=== PATIENT | female | born 1950 | race Caucasian/White ===

== ENCOUNTER → 2018-02-20 | Outpatient (CLI) | payer OTHER ==
[~2018-02-20] MED LIST: ALPR1TAB3 PO; ATOR-24 PO; BUME1TAB PO; CARV25TA PO; CHOL2000 PO; CLON0.1T12 PO; GLIM4TAB2 PO; INSU1INJ33 SQ; LINA1TAB PO; LISI40TA PO; MAGN400T6 PO; POLY335019 PO; POTA-639 PO; RXC5 PO; SYN75 PO; VENL-273 PO; XRL10 PO; thyroxine PO
[2018-02-20 12:23] LABS: BASO % 0.5 %; BASO ABS # 0.04 K/uL (0-0.2); EOS % 3.5 %; HEMATOCRIT 39.9 % (37-47); HEMOGLOBIN 12.4 g/dL (12.0-16.0); IG# 0.04 K/uL (0.00-0.02); LYMPH % 24.9 %; LYMPH ABS # 2.12 K/uL (1.2-3.4); MEAN CELL VOLUME 88.9 fL (80-100); MEAN CORPUSCULAR HEMOGLOBIN 27.6 pg (25-34); MEAN CORPUSCULAR HGB CONC 31.1 g/dl (32-36); MEAN PLATELET VOLUME 10.2 fL (7.4-10.4); MONO % 5.6 %; MONO ABS # 0.48 K/uL (0.11-0.59); NEUT ABS # 5.54 K/uL (1.4-6.5); PLATELET COUNT 299 K/uL (130-400); RED CELL DISTRIBUTION WIDTH CV 15.3 % (11.5-14.5); RED CELL DISTRIBUTION WIDTH SD 49.2 fL (36.4-46.3); WHITE BLOOD COUNT 8.52 K/uL (4.8-10.8)
[2018-02-20 12:37] LABS: BLOOD UREA NITROGEN 25 mg/dl (7-18); CALCIUM 8.6 mg/dl (8.5-10.1); CARBON DIOXIDE 25 mmol/L (21-32); CREATININE 0.98 mg/dl (0.60-1.20); GLUCOSE 196 mg/dl (70-99); POTASSIUM 4.2 mmol/L (3.5-5.1); SODIUM 134 mmol/L (136-145)
[2018-02-20 12:40] LABS: PTT PATIENT 25.2 SECONDS (21.0-31.0)
== END | disposition home or self-care (01) ==
LOC: C.LAB 10:17
PROVIDERS: ATTEND Orthopaedic Surgery
DX: Z01.812 Encounter for preprocedural laboratory examination (principal); M17.11 Unilateral primary osteoarthritis, right knee

== ENCOUNTER 2018-10-24 09:15 | Inpatient (IN) ==
--- NOTE | 2018-10-22 09:12 | Anesthesiology Consultation ---
Date of Service October 22, 2018 Assessment & Plan (1) Encounter for pre-operative examination: Chart Review Chart Review: Acceptable Risk for Surgery and Patient NOT seen in Pre Admission Testing Consults Requested none Pt was seen by information security specialist on 10/16/18. Per information security specialist "the patient is stable and at optimal cardiac status presently to proceed with the planned surgery accepting all CV risks." History Surgery Operation Date: 10/24/18 13:40 Proposed Procedures p Right Repair Quadriceps Tendon Tear - Vincent Parisi DO Height/Weight Height: 1.45 m Weight: 108.409 kg Allergies Allergy/AdvReac Type Severity Reaction Status Date / Time Penicillins Allergy Intermediate HIVES Verified 10/21/18 15:15 [facility]aglutide [facility] Allergy Unknown CAN'T Verified 10/21/18 15:15 REMEMBER NSAIDS (Non-Steroidal AdvReac Mild DUE TO Verified 10/21/18 15:15 Anti-Inflamma KIDNEY DISEASE Medications Home Medications Medication Instructions Recorded Confirmed Last Taken Tradjenta 5 mg PO QAM 90 Days #90 tab 12/05/17 10/21/18 04/11/18 10:00 Tresiba FlexTouch U-100 40 unit SUBCUT QPM #0 12/05/17 10/21/18 04/12/18 06:30 alprazolam 1 mg PO BID #0 tab 12/05/17 10/21/18 04/12/18 05:00 atorvastatin 40 mg PO HS 90 Days #90 tab 12/05/17 10/21/18 04/11/18 23:00 bumetanide 0.5 mg PO Q2D #0 tab 12/05/17 10/21/18 Unknown carvedilol 25 mg PO BID 30 Days #60 tab 12/05/17 10/21/18 04/12/18 05:00 cholecalciferol (vitamin D3) 2,000 unit PO DAILY 30 Days #0 cap 12/05/17 10/21/18 04/11/18 17:00 [Vitamin D3] clonidine HCl 0.1 mg PO BID 90 Days #180 tab 12/05/17 10/21/18 04/12/18 05:00 lisinopril 40 mg PO QAM #0 tab 12/05/17 10/21/18 04/12/18 05:00 magnesium oxide 400 mg PO DAILY #0 tab 12/05/17 10/21/18 04/11/18 17:00 potassium chloride 20 meq PO Q2D #0 tab 12/05/17 10/21/18 Unknown polyethylene glycol 3350 [Miralax] 1 dose PO DAILY PRN #527 g 01/01/18 10/21/18 Unknown apixaban [Eliquis] 5 mg PO BID 10/21/18 10/21/18 Unknown aspirin [Aspir-Low] 81 mg PO QAM 10/21/18 10/21/18 Unknown diltiazem HCl [Cardizem CD] 120 mg PO QAM 10/21/18 10/21/18 Unknown escitalopram oxalate [Lexapro] 10 mg PO QAM 10/21/18 10/21/18 Unknown levothyroxine 88 mcg PO QAM 10/21/18 10/21/18 Unknown semaglutide [Ozempic] 1 dose SUBCUT WK 10/21/18 10/21/18 Unknown Past Medical History Medical History Anxiety Atrial fibrillation Coronary artery disease 2013 HEART CATH, 2 REMY to LAD Degenerative disc disease Depression Diabetes mellitus, type 2 IDDM History of stent insertion of renal artery LEFT 08/2013 Hx of deep venous thrombosis 03/2018 S/P RT KNEE SURGERY Hx of myocardial infarction 2012 Hyperlipemia Hypertension Hypothyroidism Osteoarthritis Past Family History Family History Mother Breast cancer Brother Coronary heart disease Brother Coronary heart disease Sister Breast cancer Brother Family history of diabetes mellitus Father Family history of esophageal cancer Past Surgical History Surgical History Family history of reaction to anesthesia SISTER-NAUSEA History of carpal tunnel release RT History of heart artery stent 2 STENTS PLACED 2012 [facility] History of incision and drainage ABDOMEN AREA 10 YEARS LATER S/P LIANET History of tonsillectomy History of tooth extraction History of total abdominal hysterectomy and bilateral salpingo-oophorectomy History of total knee replacement LT/RT History of total left knee replacement 12/2017 Hx of cardiac cath 2013 HEART CATH, 2 REMY to LAD Hx of cystoscopy LEFT KIDNEY STENT (HAD HIGH BLOOD PRESSURE/? OBSTRUCTION) Hx of parathyroidectomy Social History Smoking Status: Never smoker Do You Dip or Chew Tobacco: No Hx Alcohol Use: No Hx Substance Use: No substance use type: does not use Exercise / Class Metabolic Activity III < 4 Walking/Shop/Light housework Testing Electrocardiogram Date: 10/16/18 Findings: + NSR @ (77) Echocardiogram Date: 04/15/18 EF: 65-70% LV Function: normal RWMA: + none Valvular Disease: + MR (Mild) Per cardio, echo from 10/04/18: EF 55%. RV wnl. Stress Test Date: 11/19/17 Type: nuclear Resting EF: 44% Type: nuclear Findings: no ischemia Resting EF: 44% Resting RWMA: + pertinent finding (basal septal HK) Cardiac Catheterization Date: 06/17/13 Intervention: + REMY placed Cardiac Catheterization Date: 06/17/13 LAD: prox 99% stenosis with sluggish flow down to distal LAD; RCA prox 80%- Nondominant OM1 prox and mid 50%; accesory LCx; LAD collateralized from R circulation; 2 overlapping REMY to LAD
--- NOTE | 2018-10-23 07:26 | History & Physical Report ---
Date of Service October 23, 2018 Assessment & Plan (1) Quadriceps tendon rupture: We will proceed with an open quadriceps tendon repair. Postoperatively I will keep her overnight at the hospital for medical management and observation. She will be started back on her aspirin and Eliquis postoperatively. Present on Admission?: Yes History of Present Illness Primary Care Provider: Pete Salazar is a pleasant 67-year-old female who underwent a right total knee arthroplasty on April 122017. She is now 6 months out. She was at [facility] with concerns of having a heart attack about 2 weeks ago. She was in a low commode and went to get herself out of the commode and felt a snap and a pop in her right knee. Her knee completely gave out on her. Initial x-rays at the hospital did show some lateral tracking of the patella. At this point she is able to walk on her knee, but she does not have good strength with it. X-rays in our office did show some lateral tracking of the patella. She has a very large soft tissue envelope so was difficult to palpate any defect in the quadriceps tendon. However, she examined very much like a dehiscence of the quadriceps. After discussions with her and her , she elected to proceed with an open quadriceps tendon repair. Allergies Allergy/AdvReac Type Severity Reaction Status Date / Time Penicillins Allergy Intermediate HIVES Verified 10/21/18 15:15 dulaglutide [From [facility]] Allergy Unknown CAN'T Verified 10/21/18 15:15 REMEMBER NSAIDS (Non-Steroidal AdvReac Mild DUE TO Verified 10/21/18 15:15 Anti-Inflamma KIDNEY DISEASE Home Medications Home Medications Medication Instructions Recorded Confirmed Type Tradjenta 5 mg PO QAM 90 Days #90 tab 12/05/17 10/21/18 History Tresiba FlexTouch U-100 40 unit SUBCUT QPM #0 12/05/17 10/21/18 History alprazolam 1 mg PO BID #0 tab 12/05/17 10/21/18 History atorvastatin 40 mg PO HS 90 Days #90 tab 12/05/17 10/21/18 History bumetanide 0.5 mg PO Q2D #0 tab 12/05/17 10/21/18 History carvedilol 25 mg PO BID 30 Days #60 tab 12/05/17 10/21/18 History cholecalciferol (vitamin D3) 2,000 unit PO DAILY 30 Days #0 cap 12/05/17 10/21/18 History [Vitamin D3] clonidine HCl 0.1 mg PO BID 90 Days #180 tab 12/05/17 10/21/18 History lisinopril 40 mg PO QAM #0 tab 12/05/17 10/21/18 History magnesium oxide 400 mg PO DAILY #0 tab 12/05/17 10/21/18 History potassium chloride 20 meq PO Q2D #0 tab 12/05/17 10/21/18 History polyethylene glycol 3350 [Miralax] 1 dose PO DAILY PRN #527 g 01/01/18 10/21/18 History apixaban [Eliquis] 5 mg PO BID 10/21/18 10/21/18 History aspirin [Aspir-Low] 81 mg PO QAM 10/21/18 10/21/18 History diltiazem HCl [Cardizem CD] 120 mg PO QAM 10/21/18 10/21/18 History escitalopram oxalate [Lexapro] 10 mg PO QAM 10/21/18 10/21/18 History levothyroxine 88 mcg PO QAM 10/21/18 10/21/18 History semaglutide [Ozempic] 1 dose SUBCUT WK 10/21/18 10/21/18 History Past Med/Surg History Medical History Anxiety Atrial fibrillation Coronary artery disease 2013 HEART CATH, 2 REMY to LAD Degenerative disc disease Depression Diabetes mellitus, type 2 IDDM History of stent insertion of renal artery LEFT 08/2013 Hx of deep venous thrombosis 03/2018 S/P RT KNEE SURGERY Hx of myocardial infarction 2012 Hyperlipemia Hypertension Hypothyroidism Osteoarthritis Surgical History Family history of reaction to anesthesia SISTER-NAUSEA History of carpal tunnel release RT History of heart artery stent 2 STENTS PLACED 2012 [facility] History of incision and drainage ABDOMEN AREA 10 YEARS LATER S/P LIANET History of tonsillectomy History of tooth extraction History of total abdominal hysterectomy and bilateral salpingo-oophorectomy History of total knee replacement LT/RT History of total left knee replacement 12/2017 Hx of cardiac cath 2013 HEART CATH, 2 REMY to LAD Hx of cystoscopy LEFT KIDNEY STENT (HAD HIGH BLOOD PRESSURE/? 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 I am unable to feel any defect in the quad tendon because of her large soft tissue envelope. She has about a 5 degree extensor lag. She has weakness with extension of the right leg compared to the left. She is able to do a strong straight leg raise on the left but only has 3 out of 5 muscle strength on the right. Results & Data Diagnostic Findings X-rays of the knee show the implants to be in good alignment without any signs of loosening. There is lateral tracking of the patella especially when compared to 6-week postoperative films.
[~2018-10-24 09:15] MED LIST changes: -ALPR1TAB3 PO; -ATOR-24 PO; -BUME1TAB PO; -CARV25TA PO; -CHOL2000 PO; -CLON0.1T12 PO; -GLIM4TAB2 PO; -INSU1INJ33 SQ; -LINA1TAB PO; -LISI40TA PO; +LR 15ML/HR IV SCH; +LR 60ML/HR IV SCH; -MAGN400T6 PO; -POLY335019 PO; -POTA-639 PO; +ROPIVACAINE 0.5% 5 MG/ML 30 ML VIAL ONE; -RXC5 PO; -SYN75 PO; -VENL-273 PO; -XRL10 PO; -thyroxine PO
[2018-10-24 10:00] LABS: Hematocrit (blood only) 44.2 % (37-47); Hemoglobin 14.6 g/dL (12.0-16.0); Mean Corpuscular Volume 86.8 fL (80-100); Mean Platelet Volume 10.3 fL (7.4-10.4); Platelet Count 310 K/uL (130-400); RDW Coefficient of Variation 15.2 % (11.5-14.5); RDW Standard Deviation 48.6 fL (36.4-46.3); Red Blood Count 5.09 M/uL (4.2-5.4); White Blood Count 9.81 K/uL (4.8-10.8)
[2018-10-24 10:16] LABS: BUN Creatinine Ratio 16.8 (10-20); Calcium 9.3 mg/dl (8.5-10.1); Creatinine Clr Calc Pharmacy 51.9 ml/min; Est GFR (African American) 59.3; Est GFR (Non-African American) 51.1; Potassium 4.3 mmol/L (3.5-5.1)
[2018-10-24 10:37] LABS: INR 1.1 (0.9-1.1); Partial Thromboplastin Time 26.5 Seconds (21.0-31.0); Prothrombin Time 11.3 Seconds (9.0-12.0)
[2018-10-24] MEDS ORDERED: ePHEDrine sulfate 50 MG/ML AMP IV PRN (11:07)
[2018-10-24] MEDS ORDERED: ATROPINE SULFATE 0.1 MG/ML 10ML SYR IV PRN (11:07)
[2018-10-24] MEDS ORDERED: DEXAMETHASONE SOD INJ 4 MG/ML VIAL ONE (11:26)
[2018-10-24] MEDS ORDERED: ONDANSETRON INJ 2 MG/ML 2 ML VIAL ONE (11:26)
[2018-10-24] MEDS ORDERED: LIDOCAINE HCL 2% 2 ML VIAL/AMP(20MG/ML) INFIL ONE (11:26)
[2018-10-24] MEDS ORDERED: PROPOFOL IV EMULSION 10 MG/ML 20 ML VIAL IV ONE (11:26)
[2018-10-24] MEDS ORDERED: MIDAZOLAM HCL 1 MG/ML 2ML VIAL ONE (11:27)
[2018-10-24] MEDS ORDERED: fentaNYL citrate 100 MCG/2 ML VIAL ONE (11:27)
--- NOTE | 2018-10-24 12:02 | History & Physical Bridge Note ---
Date of Service October 24, 2018 History & Physical Bridge Note I have examined the patient, reviewed the History & Physical and in the interval since the performance of the History & Physical I have noted the following changes of clinical significance: no changes noted
[2018-10-24] MEDS ORDERED: BUPIVACAINE 0.25% 30 ML VIAL ONE (12:39)
[2018-10-24] MEDS ORDERED: EPINEPHrine INJ 1 MG/ML AMP ONE (12:39)
[2018-10-24] MEDS ORDERED: POVIDONE-IODINE OP SOLN 30 ML BTL ONE (12:39)
[2018-10-24] MEDS: CEFAZOLIN 2000MG 2,000 MG/15 ML SYR IV SCH ×2 (12:40→20:49)
--- NOTE | 2018-10-24 13:54 | Operative Report ---
Post Operative Report Pre & Post Diagnosis Operation Date: 10/24/18 12:20 Pre-Op Diagnosis: Right Quadriceps Tendon dehiscence Post-Op Diagnosis: Right Quadriceps Tendon dehiscence Procedure Operation Date: 10/24/18 12:20 Actual Procedures p Right Repair Quadriceps Tendon Tear(Right) - Vincent Parisi DO Surgeon Vincent Parisi DO Agents' Records Clerk None Estimated Blood Loss 30 Findings Consistent with Post-Op Diagnosis Specimens None Indications Marie is a pleasant 68-year-old female who underwent a right total knee arthroplasty about 6 months ago. Unfortunately, about 2 weeks ago she thought she was having some cardiac issues. She went to [facility]. While at the hospital she was getting up off a low commode and felt a pop in her right knee. X-rays at the hospital did show a laterally translated patella. She came to my office. Repeat x-rays did show lateral translation of the patella compared to the original postop x-rays. She did have an extensor lag and was complaining about her knee giving out on her. After discussions in the office, she elected to proceed with an open quadriceps tendon repair. Description of Procedure On October 24, 2018 she arrived at [facility] for the above procedure. She was seen in the preoperative holding area and the operative extremity was identified and signed. She was given a preoperative antibiotic and taken back to the operating room. She was laid on the table in supine position. She was put under general anesthesia. The right knee was then prepped and draped in sterile fashion. A timeout was done. The patient and the operative extremity was properly identified. A midline incision was made directly over the old scar. Dissection was taken down to the extensor mechanism. The superior medial aspect of the extensor mechanism had a slight delaminating tear. It was not torn all the way down to the joint. The tear involved the VMO tendon and was more of a delaminating type tear. This was all repaired with #2 FiberWire suture. I was able to tighten up the medial side. The knee was brought through full range of motion and everything was felt to be stable. The wound was then irrigated. I did a 3- minute Betadine lavage. The skin was then closed with 2-0 Vicryl and 30V lock suture. [place] were used. She was then placed in a soft compressive dressing. She was then extubated and transferred to a [facility]. She was taken to the post anesthesia care unit in stable condition. She tolerated the procedure well. I attest to the content of the Intraoperative Record and any orders documented therein. Any exceptions are noted below.
[2018-10-24] MEDS: HYDROmorphone INJ 1 MG/ML SYRINGE IV PRN ×3 (14:09→14:22)
--- NOTE | 2018-10-24 14:51 | Anesthesiology Progress Note ---
Date of Service October 24, 2018 Anesthesia Post Procedure Vital Signs Vital Signs: Temp Pulse Pulse Resp BP Pulse Ox 10/24/18 14:45 36.3 C L 55 L 15 149/74 H 96 10/24/18 14:30 55 L 12 142/74 H 95 10/24/18 14:20 58 L 13 150/80 H 100 10/24/18 14:10 58 L 20 101/74 100 10/24/18 14:01 36 C L 70 17 169/83 H 99 10/24/18 09:45 36.5 C 69 20 139/66 95 Pain Intensity Right Knee: Pain Intensity: 3 Notes Mental Status: alert / awake / arousable Patient Amnestic to Procedure: Yes Nausea / Vomiting: adequately controlled Pain: adequately controlled Airway Patency, RR, SpO2: stable & adequate BP & HR: stable & adequate Hydration State: stable & adequate Anesthetic Complications: no major complications apparent and Pt Satisfied with anesthetic care
[2018-10-24] MEDS ORDERED: BISACODYL 10 MG SUPP PR PRN (15:22)
[2018-10-24] MEDS ORDERED: HYDROmorphone INJ 0.5 MG/0.5 ML SYR IV PRN (15:22)
[2018-10-24] MEDS ORDERED: POLYETHYLENE (MIRALAX) 17 GM PACK PO PRN (15:22)
[2018-10-24] MEDS ORDERED: MAGNESIUM HYDROXIDE SUSP 30 ML UDC PO PRN (15:22)
[2018-10-24] MEDS ORDERED: NALOXONE HCL 0.4 MG/1 ML VIAL/CARP IV PRN (15:22)
[2018-10-24] MEDS ORDERED: METOCLOPRAMIDE HCL INJ 5 MG/ML 2 ML VIAL IV PRN (15:22)
[2018-10-24] MEDS ORDERED: TRAMADOL HCL 50 MG TABLET PO PRN (15:22)
[2018-10-24] MEDS ORDERED: ONDANSETRON INJ 2 MG/ML 2 ML VIAL IV PRN (15:22)
[2018-10-24] MEDS ORDERED: KETOROLAC TROMETHAMINE 15 MG/ML VIAL IV SCH (16:00)
[2018-10-24] MEDS: SODIUM CHLORIDE 0.9% 1000ML 1,000 ML IV SCH (16:15)
[2018-10-24] MEDS ORDERED: PHARMACY GLYCEMIC MGMT CONSULT SCH (16:43)
--- NOTE | 2018-10-24 16:59 | Pharmacy Report ---
Glycemic Control Consultation - Date of Service October 24, 2018 - Scope Scope: Glycemic Pharmacist consulted by Dr Parisi on 10/24/18 for glycemic control and to write orders per [facility] inpatient glycemic control protocol - Objective Weight: 108.862 kg Accuchecks BSG (last 24hrs): 10/24/18 10/24/18 10/24/18 09:51 09:53 14:46 Glucose 144 H POC Glucose 140 H 113 H Laboratory Data (last 24hrs): 10/24/18 09:53 Potassium 4.3 Carbon Dioxide 29 Anion Gap 7.0 Creatinine 1.12 Est Cr Clr Drug Dosing 51.9 - Recent Pertinent Medications Outpatient Anti-diabetic Regimen: * Tresiba 20 units HS * Tradjenta 5mg PO daily * A1c = 8.0 % 04/13/18 - new A1c ordered Risk Factors for Insulin Resistance: * Steroids: Dexamethasone 8mg IV x1 dose preop * Recent Surgery: s/p quad tendon repair * Diet: Type 2 DM - Assessment & Plan Assessment & Plan: ASSESSMENT: * 68 year old female, s/p quadricep tendon repair, type 2 diabetic, uncontrolled per A1c last Mar - new A1c ordered * Patient received IV steroids preop- will give extra dose of Lantus in addition to patient's usual dose x 1 now * Will give stressed CF and CR until steroids wear off * Will have extra accuchecks overnight for IV steroids * Pt is maintained on SQ & oral antidiabetic agents as an outpatient * Oral agents are not recommended for inpatient use d/t drug interactions, changing PO intake, and difficulty titrating for acute hyper/hypoglycemia. ADA recommends re-initiating outpatient oral agents 1-2 days prior to discharge if/when appropriate if they were held on admission. * Will hold oral agents for admission and utilize SQ basal bolus insulin regimen which is the recommended regimen for inpatient glycemic control. * ADA & AACE recommend a goal blood sugar range 140-180 mg/dl for the majority of critically ill & non-critically ill patients. However, more stringent targets may be selected in individual cases. Will utilize more stringent goal of 110-140mg/dl based on patient age & comorbidities. Additionally, tighter glycemic control is warranted to facilitate wound/infection healing. PLAN FOR INPATIENT GLYCEMIC CONTROL: * Basal insulin * Lantus 50 units SQ x 1 dose now then * Lantus 20 units SQ HS starting tomorrow night * Bolus insulin * NovoLog per scale ACHS or Q6hrs while NPO and overnight at 0000 and 0400 * Goal Range: Low 110 mg/dL - High 140 mg/dL * Correction Factor: 15 mg/dL/unit * Nutritional / Prandial insulin per carb ratio of 1 unit per 5 grams CHO consumed * Please note that the plan above was derived based on current level of insulin resistance and hospital stress. These recommendations are appropriate for inpatient admission only. Plan of care upon discharge will need to be reassessed to avoid potential outpatient hypo/hyperglycemia. Thank you.
[2018-10-24] MEDS ORDERED: GLUCOSE 10 TABS/TUBE PO PRN (17:00)
[2018-10-24] MEDS ORDERED: CARBOHYDRATES FOR HYPOGLYCEMIA PO PRN (17:00)
[2018-10-24] MEDS ORDERED: INSULIN GLARGINE SOLOSTAR 100 UNITS/ML 3 ML PEN SC ONE (17:00)
[2018-10-24] MEDS ORDERED: GLUCAGON FOR INJ 1 MG VIAL IM PRN (17:00)
[2018-10-24] MEDS ORDERED: GLUCOSE 40% GEL 15 GM TUBE PO PRN (17:00)
[2018-10-24] MEDS ORDERED: DEXTROSE 50% 50 ML SYRINGE IV PRN (17:00)
[2018-10-24] MEDS: INSULIN ASPART 100 UNITS/ML 3 ML PEN SC SCH ×2 (18:08→21:12)
[2018-10-24] MEDS: cloNIDine HCl 0.1 MG TAB PO SCH (21:00)
[2018-10-24] MEDS ORDERED: ATORVASTATIN 40 MG TAB PO SCH (21:00)
[2018-10-24] MEDS ORDERED: SENNA 8.6 MG TAB PO SCH (21:00)
[2018-10-24] MEDS: DOCUSATE SODIUM 100 MG CAP PO SCH (21:00)
[2018-10-24] MEDS: APIXABAN 5 MG TABLET PO SCH (21:01)
[2018-10-24] MEDS: CARVEDILOL 25 MG TAB PO SCH (21:01)
[2018-10-24] MEDS: ALPRAZolam 0.5 MG TABLET PO SCH (21:02)
[2018-10-24] MEDS: ACETAMINOPHEN 500 MG TAB PO SCH (21:02)
[2018-10-25] MEDS: INSULIN ASPART 100 UNITS/ML 3 ML PEN SC SCH ×4 (00:18→12:57)
[2018-10-25] MEDS: SODIUM CHLORIDE 0.9% 1000ML 1,000 ML IV SCH (02:28)
[2018-10-25] MEDS: CEFAZOLIN 2000MG 2,000 MG/15 ML SYR IV SCH (04:16)
[2018-10-25] MEDS: ACETAMINOPHEN 500 MG TAB PO SCH (05:51)
[2018-10-25] MEDS ORDERED: LEVOTHYROXINE SODIUM 88 MCG TABLET PO SCH (06:30)
--- NOTE | 2018-10-25 06:31 | Orthopedic Progress Note ---
Date of Service October 25, 2018 Assessment & Plan (1) Quadriceps tendon rupture: Overall she is doing fairly well. She can rehab this like a regular knee replacement surgery. There is no restrictions on range of motion or ambulation. She will be seen by physical therapy this morning. As long she is doing well she can be discharged home. She does not want any narcotic pain medications. She only wants Tylenol. She will follow-up with orthopedics in 2 weeks. She is on aspirin and Eliquis for DVT prophylaxis. Present on Admission?: Yes Subjective Marie was seen and examined at bedside this morning. She is having a lot of pain in her knee which is to be expected. She was able to ambulate to the bathroom last night. She had no acute events overnight. She has no complaints. Physical Exam Vital Signs (Past 24 Hours): Last Vital Signs Temp 36.7 C 10/25/18 02:57 Pulse 67 10/25/18 02:57 Resp 16 10/25/18 02:57 BP 153/70 H 10/25/18 02:57 Pulse Ox 92 10/25/18 02:57 Musculoskeletal: On physical examination of the right knee, the dressing is clean and dry. Her legs out in full extension. She is active dorsiflexion and plantarflexion of the right ankle. Sensation is intact throughout.
--- NOTE | 2018-10-25 06:33 | Discharge Summary ---
Date of Service October 25, 2018 Admission HPI Per Admitting Provider Marie is a pleasant 67-year-old female who underwent a right total knee arthroplasty on April 122017. She is now 6 months out. She was at [facility] with concerns of having a heart attack about 2 weeks ago. She was in a low commode and went to get herself out of the commode and felt a snap and a pop in her right knee. Her knee completely gave out on her. Initial x-rays at the hospital did show some lateral tracking of the patella. At this point she is able to walk on her knee, but she does not have good strength with it. X-rays in our office did show some lateral tracking of the patella. She has a very large soft tissue envelope so was difficult to palpate any defect in the quadriceps tendon. However, she examined very much like a dehiscence of the quadriceps. After discussions with her and her , she elected to proceed with an open quadriceps tendon repair. Discharge Data Consultations 10/24/18 15:22 Consult Case Management - Discharge Planning Routine Procedures Performed Operation Date: 10/24/18 12:20 Actual Procedures p Right Repair Quadriceps Tendon Tear(Right) - Vincent Parisi, DO Hospital Course (1) Quadriceps tendon rupture: On October 24, 2018 Marie arrived at [facility] in the hospital and underwent a right quad repair without complication. It was just a very small dehiscence from a previous knee replacement surgery. Postoperatively she was restarted on her aspirin and Eliquis for DVT prophylaxis and discharged back to the general orthopedic floors. Her hospital course is uneventful. On postop day #1 her H&H was stable and her pain was well controlled. She was having soreness in her knee but she would only take Tylenol for the pain. She was able to ambulate with physical therapy. She was then discharged to home. She will follow-up with orthopedics in 2 weeks. Discharge Instructions Home Medications Medication Instructions Recorded Confirmed Tradjenta 5 mg PO QAM 90 Days #90 tab 12/05/17 10/24/18 Tresiba FlexTouch U-100 20 unit SUBCUT QPM #0 12/05/17 10/24/18 alprazolam 1 mg PO BID #0 tab 12/05/17 10/24/18 atorvastatin 40 mg PO HS 90 Days #90 tab 12/05/17 10/24/18 bumetanide 0.5 mg PO Q2D #0 tab 12/05/17 10/24/18 carvedilol 25 mg PO BID 30 Days #60 tab 12/05/17 10/24/18 cholecalciferol (vitamin D3) 2,000 unit PO DAILY 30 Days #0 cap 12/05/17 10/24/18 [Vitamin D3] clonidine HCl 0.1 mg PO BID 90 Days #180 tab 12/05/17 10/24/18 lisinopril 40 mg PO QAM #0 tab 12/05/17 10/24/18 magnesium oxide 400 mg PO DAILY #0 tab 12/05/17 10/24/18 potassium chloride 20 meq PO Q2D #0 tab 12/05/17 10/24/18 polyethylene glycol 3350 [Miralax] 1 dose PO DAILY PRN #527 g 01/01/18 10/24/18 apixaban [Eliquis] 5 mg PO BID 10/21/18 10/24/18 aspirin [Aspir-Low] 81 mg PO QAM 10/21/18 10/24/18 diltiazem HCl [Cardizem CD] 120 mg PO QAM 10/21/18 10/24/18 escitalopram oxalate [Lexapro] 10 mg PO QAM 10/21/18 10/24/18 levothyroxine 88 mcg PO QAM 10/21/18 10/24/18 semaglutide [Ozempic] 1 dose SUBCUT WK 10/21/18 10/24/18
[2018-10-25 06:36] LABS: Estimated Average Glucose 154 mg/dl
[2018-10-25] MEDS: cloNIDine HCl 0.1 MG TAB PO SCH (08:58)
[2018-10-25] MEDS: CARVEDILOL 25 MG TAB PO SCH (08:59)
[2018-10-25] MEDS: APIXABAN 5 MG TABLET PO SCH (08:59)
[2018-10-25] MEDS: DOCUSATE SODIUM 100 MG CAP PO SCH (08:59)
[2018-10-25] MEDS ORDERED: LISINOPRIL 40 MG TAB PO SCH (09:00)
[2018-10-25] MEDS ORDERED: MULTIVITAMIN TAB PO SCH (09:00)
[2018-10-25] MEDS ORDERED: POTASSIUM CHLORIDE 20 MEQ TABCR PO SCH (09:00)
[2018-10-25] MEDS ORDERED: ASPIRIN 81 MG ECTAB PO SCH (09:00)
[2018-10-25] MEDS ORDERED: ESCITALOPRAM OXALATE 10 MG TAB PO SCH (09:00)
[2018-10-25] MEDS ORDERED: dilTIAZem HCL 120 MG CAPCR PO SCH (09:00)
[2018-10-25] MEDS ORDERED: BUMETANIDE 1 MG TAB PO SCH (09:00)
[2018-10-25] MEDS: ALPRAZolam 0.5 MG TABLET PO SCH (09:02)
[2018-10-25] MEDS ORDERED: INSULIN GLARGINE SOLOSTAR 100 UNITS/ML 3 ML PEN SC SCH (21:00)
== END 2018-10-25 13:55 | disposition home or self-care (01) | DRG 501 ==
LOC: ASU 09:15 → 3E 12:49

== ENCOUNTER 2019-05-27 08:41 | Inpatient (IN) ==
--- NOTE | 2019-05-27 11:54 | History & Physical Report ---
Date of Service May 27, 2019 Assessment & Plan (1) Closed left ankle fracture: Patient status post mechanical fall. Now unable to bear weight on the left ankle. Possible fracture per x-ray -Load x-ray image into our system -Orthopedic consultation appreciated -Maintain splint for now -Pain control -PT and OT evaluation Present on Admission?: Yes (2) Atrial fibrillation with RVR: Chronic. Stable. Heart rate presently 84 bpm Continue Eliquis 5 mg p.o. twice daily -Continue carvedilol 25 mg p.o. twice daily -Continue diltiazem 120 mg p.o. every morning -Continue to monitor Present on Admission?: Yes (3) CAD (coronary artery disease): Patient denies chest pain. -Continue home medications. Aspirin 81 mg p.o. daily, Lipitor 40 mg p.o. nightly, carvedilol 25 mg p.o. twice daily, lisinopril 40 mg p.o. daily -Bumex 0.5 mg p.o. every other day Present on Admission?: Yes (4) DMII (diabetes mellitus, type 2): Chronic. Blood sugar presently 155. Last hemoglobin A1c = 7 on 10/25/2018 Lantus 25 units nightly Insulin sliding scale Continue to monitor Present on Admission?: Yes (5) DVT (deep venous thrombosis): Remote history. Anticoagulation with apixaban 5 mg p.o. twice daily (6) Depression: Chronic. Stable. -Continue escitalopram 20 mg p.o. nightly -Alprazolam 1 mg p.o. twice daily (7) HTN (hypertension): Blood pressure stable at present. Continue home medications. Clonidine 0.1 mg p.o. twice daily, diltiazem, carvedilol -Continue to monitor (8) Hypothyroid: Chronic. -Continue Synthroid FENHep-Lock. Replete electrolytes. Heart healthy/consistent carb diet Prophylaxispatient on anticoagulation Codefull Dispositionobservation to medical floor History of Present Illness Chief Complaint: Left ankle fracture Primary Care Provider: Pete Mason Marie Montero is a 68-year-old female with multiple medical problems presenting with possible left ankle fracture. She reports that last night she was sitting with a friend who has been ill. She was sleeping on his couch. When she tried to get up around 3 in the morning to check on him her legs felt weak and she was unable to stand up. She subsequently fell and injured her left ankle and left knee. She was unable to stand up and had to call her friend and to assist. Presently with continued pain in her left ankle and left knee, inability to bear weight. She was seen at [place] emergency room earlier today where she had an x-ray obtained was suggested possible fracture. She was splinted and was going to be sent home, however, with her inability to bear weight she was transferred to [facility] for orthopedic evaluation. She is presently complaining of ankle pain Allergies Allergy/AdvReac Type Severity Reaction Status Date / Time Penicillins Allergy Intermediate HIVES Verified 10/24/18 09:54 dulaglutide [From [facility]ul[facility]] Allergy Unknown CAN'T Verified 10/24/18 09:54 REMEMBER NSAIDS (Non-Steroidal AdvReac Mild DUE TO Verified 10/24/18 09:54 Anti-Inflamma KIDNEY DISEASE Home Medications Home Medications Medication Instructions Recorded Confirmed Type Tradjenta 5 mg PO QAM 90 Days #90 tab 12/05/17 05/27/19 History Tresiba FlexTouch U-100 25 unit SUBCUT QPM #0 12/05/17 05/27/19 History alprazolam 1 mg PO BID #0 tab 12/05/17 05/27/19 History atorvastatin 40 mg PO HS 90 Days #90 tab 12/05/17 05/27/19 History bumetanide 0.5 mg PO Q2D #0 tab 12/05/17 05/27/19 History carvedilol 25 mg PO BID 30 Days #60 tab 12/05/17 05/27/19 History cholecalciferol (vitamin D3) 2,000 unit PO DAILY 30 Days #0 cap 12/05/17 05/27/19 History [Vitamin D3] clonidine HCl 0.1 mg PO BID 90 Days #180 tab 12/05/17 05/27/19 History lisinopril 40 mg PO QAM #0 tab 12/05/17 05/27/19 History magnesium oxide 400 mg PO DAILY #0 tab 12/05/17 05/27/19 History potassium chloride 20 meq PO Q2D #0 tab 12/05/17 05/27/19 History polyethylene glycol 3350 [Miralax] 1 dose PO DAILY PRN #527 g 01/01/18 05/27/19 History Eliquis 5 mg PO BID 10/21/18 05/27/19 History Ozempic 1 dose SUBCUT WK 10/21/18 05/27/19 History aspirin [Aspir-Low] 81 mg PO QAM 10/21/18 05/27/19 History diltiazem HCl [Cardizem CD] 120 mg PO QAM 10/21/18 05/27/19 History escitalopram oxalate [Lexapro] 20 mg PO QAM 10/21/18 05/27/19 History levothyroxine 75 mcg PO QAM 10/21/18 05/27/19 History Past Med/Surg History Social History Preferred Language: French Communication Ability: Effective 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 and No Beliefs That Will Affect Care: None marital status: Current Living Situation: Spouse Feels Safe at Home: Yes Smoking Status: Never smoker Second Hand Exposure: Yes ; Hx Alcohol Use: No Hx Substance Use: No Review of Systems Review of Systems: All systems reviewed & are unremarkable except as noted in HPI & below + Nausea Physical Exam Physical Exam: General: patient resting comfortably, NAD, non-toxic in appearance Skin: warm, dry, intact, no rashes or lesions HEENT: NC/AT, PERRL, EOMI, anicteric sclera, conjunctiva without injection, external ear normal to inspection and nontender, nares patent, moist mucus membranes, dentition intact, no oropharyngeal lesions, neck supple, trachea midline, no LAD, no thyromegaly, no JVD Heart: +S1/S2, regular, no m/r/g Lungs: equal air entry bilaterally, no rales/rhonchi/wheezes Abd: +BS, soft, NT/ND, no masses/organomegaly/ascites Ext: warm, 2+ pulses in UE/LE bilaterally, no clubbing/cyanosis or edema, left ankle dressed Neuro: nonfocal, patient AA&O x 4, speech intact, no facial droop, moving all extremities on command with equal strength 5/5 Results & Data Vital Signs (Past 12 Hours) Vital Signs Temp Resp BP Pulse Ox 05/27/19 10:50 36.5 C 18 137/78 95 Laboratory Results Chemistry: Oqk=579 BUN=28.3 Cr=1.04 Trop=0.16 CBC: WBC=12.92 Hg=14 Hct=43.6 UA=Negative Diagnostic Findings CXR: No evidence of acute cardiopulmonary disease XR Left knee - s/p left knee arthroplasty. No abnormal Lucency surrounding the orthopedic hardware. No fracture site is identified. There is no gross joint effusion. Large osteophytes are seen along the retropatellar surface, with small enthesophytes at the superior and inferior poles of the patella XR Left tibia/fibula: No fracture site identified X-ray left ankle: There appears to be a small fracture fragment at the lateral talar process. The ankle more T's and other joint spaces are normally aligned without evidence of tibiotalar joint effusion. Prominent osteophytosis is seen along the inferior margin of the calcaneus and along the medial malleolus. There is a soft tissue ossification at the expected location of the Achilles insertion site upon the calcaneus. Code Status & VTE Plan Code Status Full code PG Care Time/CCT Total # of Minutes Spent Total Time Spent with Patient: Total time spent is greater than 50% in coordination of care (as documented) at patient's floor/unit and/or counseling patient: (1) Closed left ankle fracture Encounter type: initial encounter Qualified Code(s): S82.892A - Other fracture of left lower leg, initial encounter for closed fracture (2) CAD (coronary artery disease) Coronary Disease-Associated Artery/Lesion type: [place] artery [place] vs. 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 mellitus vermin exterminator insulin use: with prison use Diabetes mellitus complication status: without complication Qualified Code(s): E11.9 - Type 2 diabetes mellitus without complications; Z79.4 - alf (current) use of insulin (4) Depression Depression Type: major depressive disorder Major depression recurrence: unspecified whether recurrent Active/Remission status: remission status unspecified Qualified Code(s): F32.9 - Major depressive disorder, single episode, unspecified (5) HTN (hypertension) Hypertension type: essential hypertension Qualified Code(s): I10 - Essential (primary) hypertension
[2019-05-27] MEDS ORDERED: DOCUSATE SODIUM 100 MG CAP PO PRN (12:15)
[2019-05-27] MEDS ORDERED: GLUCOSE 40% GEL 15 GM TUBE PO PRN (12:15)
[2019-05-27] MEDS ORDERED: GLUCAGON FOR INJ 1 MG VIAL SQ PRN (12:15)
[2019-05-27] MEDS ORDERED: ONDANSETRON INJ 2 MG/ML 2 ML VIAL IV PRN (12:15)
[2019-05-27] MEDS ORDERED: CARBOHYDRATES FOR HYPOGLYCEMIA PO PRN (12:15)
[2019-05-27] MEDS ORDERED: DEXTROSE 50% 50 ML SYRINGE IV PRN (12:15)
[2019-05-27] MEDS ORDERED: GLUCOSE 10 TABS/TUBE PO PRN (12:15)
[2019-05-27] MEDS ORDERED: POLYETHYLENE (MIRALAX) 17 GM PACK PO PRN (12:20)
[2019-05-27] MEDS ORDERED: OXYCODONE HCL IR 5 MG TAB (IMMEDIATE RELEASE) PO PRN (12:22)
[2019-05-27 14:23] LABS: Appearance Urine Clear (Clear); Bilirubin Urine Negative (Negative); Blood Urine Negative (Negative); Color Urine Yellow; Glucose Urine UA Trace (Negative); Ketones Urine Negative (Negative); Leukocyte Esterase Urine Negative (Negative); Nitrite Urine Negative (Negative); Protein Urine Negative (Negative); Specific Gravity Urine 1.026 (1.000-1.030); Urobilinogen Urine Negative (Negative); pH Urine 6.5 (4.5-7.5)
[2019-05-27] MEDS: ACETAMINOPHEN 325 MG TAB PO PRN (15:27)
[2019-05-27] MEDS: INSULIN ASPART 100 UNITS/ML 3 ML PEN SC SCH ×2 (18:06→21:02)
[2019-05-27] MEDS: APIXABAN 5 MG TABLET PO SCH (20:54)
[2019-05-27] MEDS: ATORVASTATIN 40 MG TAB PO SCH (20:55)
[2019-05-27] MEDS: cloNIDine HCl 0.1 MG TAB PO SCH (20:55)
[2019-05-27] MEDS: carvediloL 25 MG TAB PO SCH (20:55)
[2019-05-27] MEDS: ALPRAZolam 0.5 MG TABLET PO SCH (20:55)
[2019-05-27] MEDS: INSULIN GLARGINE SOLOSTAR 100 UNITS/ML 3 ML PEN SC SCH (21:01)
[2019-05-28] MEDS ORDERED: Nursing to Pharmacy Communication ONE ×2 (01:46→08:19)
[2019-05-28 05:32] LABS: Basophils # (auto) 0.03 K/uL (0-0.2); Basophils % (auto) 0.3 %; Eosinophils # (auto) 0.16 K/uL (0-0.5); Eosinophils % (auto) 1.8 %; Immature Granulocytes # (auto) 0.07 K/uL (0.00-0.02); Immature Granulocytes % (auto) 0.8 %; Mean Corpuscular Hemoglobin 30.3 pg (25-34); Mean Corpuscular Hgb Conc 32.4 g/dL (32-36); Mean Corpuscular Volume 93.4 fL (80-100); Mean Platelet Volume 9.9 fL (7.4-10.4); Monocytes # (auto) 1.04 K/uL (0.11-0.59); Monocytes % (auto) 11.4 %; Neutrophils # (auto) 5.79 K/uL (1.4-6.5); Neutrophils % (auto) 63.7 %; Platelet Count 253 K/uL (130-400); RDW Coefficient of Variation 14.6 % (11.5-14.5); RDW Standard Deviation 49.9 fL (36.4-46.3); Red Blood Count 3.96 M/uL (4.2-5.4); White Blood Count 9.09 K/uL (4.8-10.8)
[2019-05-28] MEDS: ACETAMINOPHEN 325 MG TAB PO PRN (05:55)
[2019-05-28] MEDS: LEVOTHYROXINE SODIUM 75 MCG TABLET PO SCH (05:55)
[2019-05-28] MEDS ORDERED: INSULIN ASPART 100 UNITS/ML 3 ML PEN SC SCH (06:00)
[2019-05-28 06:15] LABS: Albumin Level 2.9 gm/dl (3.4-5.0); BUN Creatinine Ratio 19.7 (10-20); Bilirubin Direct 0.1 mg/dl (0-0.2); Calcium 8.3 mg/dl (8.5-10.1); Creatinine Clr Calc Pharmacy 58.9 ml/min; Est GFR (African American) 76.2; Est GFR (Non-African American) 65.7; Magnesium 1.9 mg/dl (1.8-2.4); Potassium 3.7 mmol/L (3.5-5.1)
[2019-05-28 06:18] LABS: Bilirubin,Total 0.8 mg/dl (0.2-1); Total Protein 5.9 gm/dl (6.4-8.2)
--- NOTE | 2019-05-28 07:31 | Orthopedic Consultation ---
Date of Consultation May 28, 2019 Assessment & Plan (1) Fracture of talus, closed: For her lateral process talus fracture, she can be weightbearing as tolerated. I am going to order in a cam walker boot. She needs to be in the boot when she is out of bed and walking, however, she does not need to be in the boot when she is in bed. With regards to her left knee, she has some ecchymosis anteriorly but then the looks okay on x-ray. She can be weightbearing as tolerated on her left knee. With regards to her left upper extremity, I am advising against any cortisone injections at this point. It tends to raise her blood sugars. Her bringing in a cock-up wrist splint to the left wrist. She can wear that while ambulating with a walker. Physical therapy will be ordered for ambulation and documentation for placement purposes. She will likely need to stay at a rehab facility until she heals. There is no indication for surgery. Present on Admission?: Yes History of Present Illness Reason for Consultation: Left leg pain following fall Attending Physician: Lissette Herbert, DO History of Present Illness Marie is a pleasant 68-year-old female who is well-known to me. I did knee replacements on her over a year ago. She was then having persistent weakness mostly in her right quad. After full work-up, an MRI of her lumbar spine did show severe stenosis at the level of L3-4. Fortunately she has been doing much better. She recently lost 50 pounds. 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 When I see her in the office, she is much less depressed and much more optimistic and happy. She is a diabetic, and cortisone injections have always caused a significant spike in her blood sugars. Because she was doing better, and she did not want any injections, we elected to treat her back symptoms and leg weakness with observation. Unfortunately, about 2 weeks ago she developed significant left upper extremity pain. It is mostly focused around her elbow. She does have a cock-up wrist splint that she wears at times which helps. She was scheduled to see me in the office yesterday for left arm pain. Then, about 2 nights ago she was with one of her patients and she had extreme lower extremity weakness. She was unable to get up off the couch. Her came over to the house and helped her up. She then thought that she would be okay and her left. After he left she tried to get up again when her patient called for her. At that time her left leg gave out on her and she twisted her left ankle. She fell on her left flexed knee and twisted her left ankle. She was unable to bear weight. She went to the emergency room and radiographs of her knee were negative. Radiographs of her left ankle showed a small lateral process talar fracture. She was unable to bear weight and thus unable to go home. She was then transferred to [facility] for evaluation and treatment. Allergies Allergy/AdvReac Type Severity Reaction Status Date / Time Penicillins Allergy Intermediate HIVES Verified 10/24/18 09:54 dulaglutide [From [facility]] Allergy Unknown CAN'T Verified 10/24/18 09:54 REMEMBER NSAIDS (Non-Steroidal AdvReac Mild DUE TO Verified 10/24/18 09:54 Anti-Inflamma KIDNEY DISEASE Home Medications Home Medications Medication Instructions Recorded Confirmed Type Tradjenta 5 mg PO QAM 90 Days #90 tab 12/05/17 05/27/19 History Tresiba FlexTouch U-100 25 unit SUBCUT QPM #0 12/05/17 05/27/19 History alprazolam 1 mg PO BID #0 tab 12/05/17 05/27/19 History atorvastatin 40 mg PO HS 90 Days #90 tab 12/05/17 05/27/19 History bumetanide 0.5 mg PO Q2D #0 tab 12/05/17 05/27/19 History carvedilol 25 mg PO BID 30 Days #60 tab 12/05/17 05/27/19 History cholecalciferol (vitamin D3) 2,000 unit PO DAILY 30 Days #0 cap 12/05/17 05/27/19 History [Vitamin D3] clonidine HCl 0.1 mg PO BID 90 Days #180 tab 12/05/17 05/27/19 History lisinopril 40 mg PO QAM #0 tab 12/05/17 05/27/19 History magnesium oxide 400 mg PO DAILY #0 tab 12/05/17 05/27/19 History potassium chloride 20 meq PO Q2D #0 tab 12/05/17 05/27/19 History polyethylene glycol 3350 [Miralax] 1 dose PO DAILY PRN #527 g 01/01/18 05/27/19 History Eliquis 5 mg PO BID 10/21/18 05/27/19 History Ozempic 1 dose SUBCUT WK 10/21/18 05/27/19 History aspirin [Aspir-Low] 81 mg PO QAM 10/21/18 05/27/19 History diltiazem HCl [Cardizem CD] 120 mg PO QAM 10/21/18 05/27/19 History escitalopram oxalate [Lexapro] 20 mg PO QAM 10/21/18 05/27/19 History levothyroxine 75 mcg PO QAM 10/21/18 05/27/19 History Patient History Social History Preferred Language: Turkmen Communication Ability: Effective 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 She has tenderness to palpation in the area. I can do very gentle range of motion of her knee but she has a lot of pain. She has no gross instability. On physical examination of her left ankle there is a lot of swelling and ecchymosis mostly laterally. She is very tender to palpation on the lateral aspect of her ankle. She has active motion of all of her toes and she is neurovascularly intact. Results & Data Vital Signs (Past 12 Hours) Vital Signs Temp Pulse Resp BP BP Pulse Ox 05/28/19 07:07 37.1 C 77 16 158/78 H 95 05/27/19 23:16 36.7 C 84 16 146/79 H 92 05/27/19 20:48 82 125/72 125/73 Diagnostic Findings X-rays of the left knee show a well-placed left total knee arthroplasty. I do not see any signs of fracture dislocation or loosening of the components. The knee x-rays are negative. X-rays of the left ankle show no evidence of an ankle fracture. The ankle mortise is well-maintained. There is some arthritis. There is, however a small foot fracture with the lateral process of the talus. There is also extensive osteophyte formation at the insertion of the Achilles. PG Care Time/CCT Total # of Minutes Spent Total Time Spent with Patient: Total time spent is greater than 50% in coordination of care (as documented) at patient's floor/unit and/or counseling patient:
[2019-05-28] MEDS: cloNIDine HCl 0.1 MG TAB PO SCH ×2 (07:36→20:14)
[2019-05-28] MEDS: POTASSIUM CHLORIDE 20 MEQ TABCR PO SCH (07:37)
[2019-05-28] MEDS: APIXABAN 5 MG TABLET PO SCH ×2 (07:37→20:15)
[2019-05-28] MEDS: ESCITALOPRAM OXALATE 10 MG TAB PO SCH (07:37)
[2019-05-28] MEDS: carvediloL 25 MG TAB PO SCH ×2 (07:37→20:15)
[2019-05-28] MEDS: BUMETANIDE 1 MG TAB PO SCH (07:37)
[2019-05-28] MEDS: LISINOPRIL 40 MG TAB PO SCH (07:38)
[2019-05-28] MEDS: ASPIRIN 81 MG ECTAB PO SCH (07:38)
[2019-05-28] MEDS: dilTIAZem HCL 120 MG CAPCR PO SCH (07:38)
[2019-05-28] MEDS: MAGNESIUM OXIDE 400 MG TAB PO SCH (07:38)
[2019-05-28] MEDS: CHOLECALCIFEROL 1,000 UNITS TAB PO SCH (07:38)
[2019-05-28] MEDS: ALPRAZolam 0.5 MG TABLET PO SCH ×2 (07:41→20:24)
[2019-05-28] MEDS: INSULIN ASPART 100 UNITS/ML 3 ML PEN SC SCH ×4 (08:55→21:00)
[2019-05-28] MEDS ORDERED: BISACODYL 5 MG TABEC PO ONE (18:44)
[2019-05-28] MEDS: ATORVASTATIN 40 MG TAB PO SCH (20:14)
[2019-05-28] MEDS: INSULIN GLARGINE SOLOSTAR 100 UNITS/ML 3 ML PEN SC SCH (20:59)
--- NOTE | 2019-05-28 21:44 | Hospitalist Progress Note ---
Date of Service May 28, 2019 Assessment & Plan (1) Closed left ankle fracture: Patient status post mechanical fall. Now unable to bear weight on the left ankle. Possible fracture per x-ray -Load x-ray image into our system -Orthopedic consultation appreciated -Now in boot. -Ok to weight bear as tolerated. -needs rehab. -Pain control -PT and OT evaluation -Patient will need 3 night stay at hospital for insurance purposes. (2) Atrial fibrillation with RVR: Chronic. Stable. Heart rate presently 84 bpm Continue Eliquis 5 mg p.o. twice daily -Continue carvedilol 25 mg p.o. twice daily -Continue diltiazem 120 mg p.o. every morning -Continue to monitor (3) CAD (coronary artery disease): Patient denies chest pain. -Continue home medications. Aspirin 81 mg p.o. daily, Lipitor 40 mg p.o. nig htly, carvedilol 25 mg p.o. twice daily, lisinopril 40 mg p.o. daily -Bumex 0.5 mg p.o. every other day (4) DMII (diabetes mellitus, type 2): Chronic. Blood sugar presently 155. Last hemoglobin A1c = 7 on 10/25/2018 Lantus 25 units nightly Insulin sliding scale Continue to monitor (5) DVT (deep venous thrombosis): Remote history. Anticoagulation with apixaban 5 mg p.o. twice daily (6) Depression: Chronic. Stable. -Continue escitalopram 20 mg p.o. nightly -Alprazolam 1 mg p.o. twice daily (7) HTN (hypertension): Blood pressure stable at present. Continue home medications. Clonidine 0.1 mg p.o. twice daily, diltiazem, carvedilol -Continue to monitor (8) Hypothyroid: Chronic. -Continue Synthroid FENHep-Lock. Replete electrolytes. Heart healthy/consistent carb diet Prophylaxispatient on anticoagulation Codefull Subjective Patient does not provide any new complaints. She is complaining of pain in her left knee, which is moderate in intensity. She also is complaining of constpation. She denies any usage of narcotics. Review of Systems Review of Systems: All systems reviewed & are unremarkable except as noted in HPI & below Physical Exam Physical Exam: General: patient resting comfortably, NAD, non-toxic in appearance Skin: warm, dry, intact, no rashes or lesions HEENT: NC/AT, PERRL, EOMI, anicteric sclera, conjunctiva without injection, external ear normal to inspection and nontender, nares patent, moist mucus membranes, dentition intact, no oropharyngeal lesions, neck supple, trachea midline, no LAD, no thyromegaly, no JVD Heart: +S1/S2, regular, no m/r/g Lungs: equal air entry bilaterally, no rales/rhonchi/wheezes Abd: +BS, soft, NT/ND, no masses/organomegaly/ascites Ext: warm, 2+ pulses in UE/LE bilaterally, no clubbing/cyanosis or edema, left ankle dressed Neuro: nonfocal, patient AA&O x 4, speech intact, no facial droop, moving all extremities on command with equal strength 5/5 Results & Data Vital Signs (Past 12 Hours) Vital Signs Temp Pulse Resp BP Pulse Ox 05/28/19 15:11 37.2 C 78 16 126/65 92 PG Care Time/CCT Total # of Minutes Spent Total Time Spent with Patient: Total time spent is greater than 50% in coordination of care (as documented) at patient's floor/unit and/or counseling patient: (1) DMII (diabetes mellitus, type 2) Diabetes mellitus complication status: without complication Diabetes mellitus lobsterman insulin use: with lobsterman use Qualified Code(s): E11.9 - Type 2 diabetes mellitus without complications; Z79.4 - vermin exterminator (current) use of insulin (2) CAD (coronary artery disease) Associated angina: without angina Coronary Disease-Associated Artery/Lesion type: [place] artery [place] vs. transplanted heart: [place] heart Qualified Code(s): I25.10 - Atherosclerotic heart disease of [place] coronary artery without angina pectoris (3) Depression Active/Remission status: remission status unspecified Depression Type: major depressive disorder Major depression recurrence: unspecified whether recurrent Qualified Code(s): F32.9 - Major depressive disorder, single episode, unspecified (4) HTN (hypertension) Hypertension type: essential hypertension Qualified Code(s): I10 - Essential (primary) hypertension (5) Closed left ankle fracture Encounter type: initial encounter Qualified Code(s): S82.892A - Other fracture of left lower leg, initial encounter for closed fracture
[2019-05-29] MEDS: ACETAMINOPHEN 325 MG TAB PO PRN ×2 (02:34→15:45)
[2019-05-29] MEDS: LEVOTHYROXINE SODIUM 75 MCG TABLET PO SCH (05:27)
[2019-05-29 05:55] LABS: INR 1.1 (0.9-1.1); Prothrombin Time 10.9 Seconds (9.0-12.0)
[2019-05-29 06:17] LABS: Albumin Level 2.8 gm/dl (3.4-5.0); Bilirubin,Total 0.6 mg/dl (0.2-1); Phosphorus 3.2 mg/dl (2.5-4.9)
[2019-05-29 06:32] LABS: Bilirubin Direct 0.2 mg/dl (0-0.2)
[2019-05-29] MEDS: CHOLECALCIFEROL 1,000 UNITS TAB PO SCH (08:51)
[2019-05-29] MEDS: MAGNESIUM OXIDE 400 MG TAB PO SCH (08:51)
[2019-05-29] MEDS: dilTIAZem HCL 120 MG CAPCR PO SCH (08:51)
[2019-05-29] MEDS: LISINOPRIL 40 MG TAB PO SCH (08:51)
[2019-05-29] MEDS: ALPRAZolam 0.5 MG TABLET PO SCH ×2 (08:51→22:15)
[2019-05-29] MEDS: ASPIRIN 81 MG ECTAB PO SCH (08:51)
[2019-05-29] MEDS: carvediloL 25 MG TAB PO SCH ×2 (08:51→22:01)
[2019-05-29] MEDS: ESCITALOPRAM OXALATE 10 MG TAB PO SCH (08:51)
[2019-05-29] MEDS: APIXABAN 5 MG TABLET PO SCH ×2 (08:52→22:07)
[2019-05-29] MEDS: cloNIDine HCl 0.1 MG TAB PO SCH ×2 (08:52→22:08)
[2019-05-29] MEDS: INSULIN ASPART 100 UNITS/ML 3 ML PEN SC SCH ×4 (08:54→22:10)
--- NOTE | 2019-05-29 15:47 | Orthopedic Progress Note ---
Date of Service May 29, 2019 Assessment & Plan (1) Fracture of talus, closed: Overall she is doing okay. This just may take some time to heal. She can be weightbearing as tolerated in a cam walker boot. She does not need the boot on when she is lying in bed. The cock-up wrist splint on the left wrist is for comfort only. She is orthopedically stable for discharge. I want to see her in the office in 4 weeks to make sure that she is improving. Present on Admission?: Yes Subjective Marie was seen and examined at bedside. Overall she is doing better. She was able to ambulate a little bit today with physical therapy. She has a cam walker boot on her left ankle and a cock-up wrist splint on her left wrist. She is plan to go to rehab tomorrow. Physical Exam Musculoskeletal: On physical examination of the left leg, there is a cam walker boot on her left ankle. She is sitting with her knee flexed at about 60 degrees. She has some ecchymosis anteriorly but it is no worse than yesterday. Results & Data Vital Signs (Past 12 Hours) Vital Signs Temp Pulse Resp BP Pulse Ox 05/29/19 15:34 37.3 C 84 18 158/66 H 94 05/29/19 11:14 36.8 C 81 18 159/85 H 94 05/29/19 07:19 36.7 C 82 17 170/84 H 95 PG Care Time/CCT Total # of Minutes Spent Total Time Spent with Patient: Total time spent is greater than 50% in coordination of care (as documented) at patient's floor/unit and/or counseling patient:
[2019-05-29] MEDS ORDERED: BISACODYL 5 MG TABEC PO ONE (16:54)
[2019-05-29] MEDS ORDERED: BISACODYL 5 MG TABEC PO STA (19:06)
--- NOTE | 2019-05-29 22:05 | Hospitalist Progress Note ---
Date of Service May 29, 2019 Assessment & Plan (1) Closed left ankle fracture: Patient status post mechanical fall. Now unable to bear weight on the left ankle. Possible fracture per x-ray -Load x-ray image into our system -Orthopedic consultation appreciated -Now in boot. -Ok to weight bear as tolerated. -needs rehab. -Pain control -PT and OT evaluation -Patient will need 3 night stay at hospital for insurance purposes, however, it appears patient was admitted under observation. Placed admitting order today. (2) Atrial fibrillation with RVR: Chronic. Stable. Heart rate presently 84 bpm Continue Eliquis 5 mg p.o. twice daily -Continue carvedilol 25 mg p.o. twice daily -Continue diltiazem 120 mg p.o. every morning -Continue to monitor (3) CAD (coronary artery disease): Patient denies chest pain. -Continue home medications. Aspirin 81 mg p.o. daily, Lipitor 40 mg p.o. nightly, carvedilol 25 mg p.o. twice daily, lisinopril 40 mg p.o. daily -Bumex 0.5 mg p.o. every other day (4) DMII (diabetes mellitus, type 2): Chronic. Blood sugar presently 155. Last hemoglobin A1c = 7 on 10/25/2018 Lantus 25 units nightly Insulin sliding scale Continue to monitor (5) DVT (deep venous thrombosis): Remote history. Anticoagulation with apixaban 5 mg p.o. twice daily (6) Depression: Chronic. Stable. -Continue escitalopram 20 mg p.o. nightly -Alprazolam 1 mg p.o. twice daily (7) HTN (hypertension): Blood pressure stable at present. Continue home medications. Clonidine 0.1 mg p.o. twice daily, diltiazem, carvedilol -Continue to monitor (8) Hypothyroid: Chronic. -Continue Synthroid FENHep-Lock. Replete electrolytes. Heart healthy/consistent carb diet Prophylaxispatient on anticoagulation Codefull Subjective Patient reports no new symptoms today. We had a discussion regarding discharge. Review of Systems Review of Systems: All systems reviewed & are unremarkable except as noted in HPI & below Physical Exam Physical Exam: General: patient resting comfortably, NAD, non-toxic in appearance Skin: warm, dry, intact, no rashes or lesions HEENT: NC/AT, PERRL, EOMI, anicteric sclera, conjunctiva without injection, external ear normal to inspection and nontender, nares patent, moist mucus membranes, dentition intact, no oropharyngeal lesions, neck supple, trachea midline, no LAD, no thyromegaly, no JVD Heart: +S1/S2, regular, no m/r/g Lungs: equal air entry bilaterally, no rales/rhonchi/wheezes Abd: +BS, soft, NT/ND, no masses/organomegaly/ascites Ext: warm, 2+ pulses in UE/LE bilaterally, no clubbing/cyanosis or edema, left ankle dressed Neuro: nonfocal, patient AA&O x 4, speech intact, no facial droop, moving all extremities on command with equal strength 5/5 Results & Data Vital Signs (Past 12 Hours) Vital Signs Temp Pulse Resp BP Pulse Ox 05/29/19 15:34 37.3 C 84 18 158/66 H 94 05/29/19 11:14 36.8 C 81 18 159/85 H 94 PG Care Time/CCT Total # of Minutes Spent Total Time Spent with Patient: Total time spent is greater than 50% in coordination of care (as documented) at patient's floor/unit and/or counseling patient: (1) DMII (diabetes mellitus, type 2) Diabetes mellitus complication status: without complication Diabetes mellitus moth exterminator insulin use: with moth exterminator use Qualified Code(s): E11.9 - Type 2 diabetes mellitus without complications; Z79.4 - 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 transplanted heart: eagle heart Qualified Code(s): I25.10 - Atherosclerotic heart disease of eagle coronary artery without angina pectoris (3) Depression Active/Remission status: remission status unspecified Depression Type: major depressive disorder Major depression recurrence: unspecified whether recurrent Qualified Code(s): F32.9 - Major depressive disorder, single episode, unspecified (4) HTN (hypertension) Hypertension type: essential hypertension Qualified Code(s): I10 - Essential (primary) hypertension (5) Closed left ankle fracture Encounter type: initial encounter Qualified Code(s): S82.892A - Other fracture of left lower leg, initial encounter for closed fracture
[2019-05-29] MEDS: ATORVASTATIN 40 MG TAB PO SCH (22:08)
[2019-05-29] MEDS: INSULIN GLARGINE SOLOSTAR 100 UNITS/ML 3 ML PEN SC SCH (22:09)
[2019-05-30] MEDS: LEVOTHYROXINE SODIUM 75 MCG TABLET PO SCH (05:40)
[2019-05-30] MEDS: carvediloL 25 MG TAB PO SCH ×2 (08:18→21:01)
[2019-05-30] MEDS: LISINOPRIL 40 MG TAB PO SCH (08:18)
[2019-05-30] MEDS: dilTIAZem HCL 120 MG CAPCR PO SCH (08:18)
[2019-05-30] MEDS: ASPIRIN 81 MG ECTAB PO SCH (08:19)
[2019-05-30] MEDS: BUMETANIDE 1 MG TAB PO SCH (08:19)
[2019-05-30] MEDS: CHOLECALCIFEROL 1,000 UNITS TAB PO SCH (08:19)
[2019-05-30] MEDS: POTASSIUM CHLORIDE 20 MEQ TABCR PO SCH (08:19)
[2019-05-30] MEDS: ESCITALOPRAM OXALATE 10 MG TAB PO SCH (08:19)
[2019-05-30] MEDS: APIXABAN 5 MG TABLET PO SCH ×2 (08:19→21:01)
[2019-05-30] MEDS: cloNIDine HCl 0.1 MG TAB PO SCH ×2 (08:19→21:02)
[2019-05-30] MEDS: MAGNESIUM OXIDE 400 MG TAB PO SCH (08:19)
[2019-05-30] MEDS: ALPRAZolam 0.5 MG TABLET PO SCH ×2 (08:30→21:18)
[2019-05-30] MEDS: INSULIN ASPART 100 UNITS/ML 3 ML PEN SC SCH ×4 (08:31→21:00)
--- NOTE | 2019-05-30 15:58 | Hospitalist Progress Note ---
Date of Service May 30, 2019 Assessment & Plan (1) Closed left ankle fracture: Weight bearing as tolerated per ortho with boot Non-surgical Awaiting placement at [facility] for rehab Pain tolerated with Tylenol Continue PT as tolerated Continue to increase ambulation as tolerated (2) Atrial fibrillation with RVR: Chronic Continue anticoagulation with Eliquis Rate control with Carvedilol and diltiazem NSR on exam with auscultation and radial pulse verification (3) DMII (diabetes mellitus, type 2): Most recent HgB A1c 7 Continue Lantus and SSI Diabetic diet (4) HTN (hypertension): Hemodynamically stable Continue home cardiac meds Pain controlled from fracture Follow vitals per protocol (5) DVT (deep venous thrombosis): Hx of non-occlusive DVT in RLE in the past No RLE edema LLE edema associated with fracture No other s/s of DVT Continue to monitor pulses Continue Eliquis Ambulate as tolerated Please refer to Dr. Perez's addendum for further recomendations Subjective Attending: Dr. Perez Is a pleasant 68-year-old female that was admitted for closed fracture of the talus status post fall. She has been seen by orthopedics and at this point is being managed conservatively. She has a walking boot which is to be applied to the left lower extremity. She is full weightbearing with the walking boot.She was ambulating the hallway today without difficulty. She is also ambulate around the room and to the restroom without difficulty. Pain is generally controlled and is only requiring Tylenol at this time. She is anticoagulated for atrial fibrillation and has no chest pain, tachyarrhythmia, or pleuritic pain to Report. She does have left lower extremity pain secondary to the fall that is generally controlled with tylenol. She is refusing any further analgesia. No chest pain or tightness. No hemoptysis. No pleuritic pain. No fever, chills, or nightsweats. She has no other acute complaints. Review of Systems Review of Systems: All systems reviewed & are unremarkable except as noted in HPI & below Physical Exam Constitutional: No acute distress. Pleasant Eyes: PERRL, conjunctivae normal, anicteric sclerae Neck: No appreciation of stridor or carotid bruits Respiratory: normal respiratory effort; no respiratory distress Au scultation: lungs clear to auscultation bilaterally and + diminished lung sounds Cardiovascular: Rate/Rhythm: regular rate and regular rhythm Musculoskeletal: Head/Neck/Chest: + abnormal palpation of chest wall Ecchymosis and swelling to the left ankle and foot. Good dorsalis pedis pulse and the posterior tibialis. Foot is warm. Able to move all toes Neurologic: A&OX3. Results & Data Vital Signs (Past 12 Hours) Vital Signs Temp Pulse Resp BP Pulse Ox 05/30/19 15:02 37.3 C 78 16 146/75 H 92 05/30/19 08:20 36.7 C 81 16 175/97 H 95 Laboratory Results 05/28/19 04:53 05/28/19 04:53 Diagnostic Findings No further diagnostics since admission PG Care Time/CCT Total # of Minutes Spent Total Time Spent with Patient: Total time spent is greater than 50% in coordination of care (as documented) at patient's floor/unit and/or counseling patient: 40 minutes (1) DMII (diabetes mellitus, type 2) Diabetes mellitus complication status: without complication Diabetes mellitus terminal carman insulin use: with mcfp use Qualified Code(s): E11.9 - Type 2 diabetes mellitus without complications; Z79.4 - FPC (current) use of insulin (2) HTN (hypertension) Hypertension type: essential hypertension Qualified Code(s): I10 - Essential (primary) hypertension (3) Closed left ankle fracture Encounter type: initial encounter Qualified Code(s): S82.892A - Other fracture of left lower leg, initial encounter for closed fracture
[2019-05-30] MEDS: SENNA 8.6 MG TAB PO SCH (18:33)
[2019-05-30] MEDS: INSULIN GLARGINE SOLOSTAR 100 UNITS/ML 3 ML PEN SC SCH (21:00)
[2019-05-30] MEDS: ATORVASTATIN 40 MG TAB PO SCH (21:02)
[2019-05-30] MEDS: ACETAMINOPHEN 325 MG TAB PO PRN (21:06)
[2019-05-31] MEDS: LEVOTHYROXINE SODIUM 75 MCG TABLET PO SCH (05:45)
[2019-05-31] MEDS: APIXABAN 5 MG TABLET PO SCH ×2 (08:45→20:30)
[2019-05-31] MEDS: LISINOPRIL 40 MG TAB PO SCH (08:45)
[2019-05-31] MEDS: ASPIRIN 81 MG ECTAB PO SCH (08:46)
[2019-05-31] MEDS: CHOLECALCIFEROL 1,000 UNITS TAB PO SCH (08:46)
[2019-05-31] MEDS: dilTIAZem HCL 120 MG CAPCR PO SCH (08:46)
[2019-05-31] MEDS: ESCITALOPRAM OXALATE 10 MG TAB PO SCH (08:46)
[2019-05-31] MEDS: cloNIDine HCl 0.1 MG TAB PO SCH ×2 (08:46→20:30)
[2019-05-31] MEDS: carvediloL 25 MG TAB PO SCH ×2 (08:46→20:30)
[2019-05-31] MEDS: SENNA 8.6 MG TAB PO SCH (08:47)
[2019-05-31] MEDS: MAGNESIUM OXIDE 400 MG TAB PO SCH (08:47)
[2019-05-31] MEDS: ALPRAZolam 0.5 MG TABLET PO SCH ×2 (08:47→20:29)
--- NOTE | 2019-05-31 08:47 | Orthopedic Progress Note ---
Date of Service May 31, 2019 Assessment & Plan (1) Fracture of talus, closed: Overall she is doing much better. She is not having too much pain in the ankle with the boot on. Her knee is causing her a little bit more pain. She has been up and ambulating. She is waiting for discharge to a rehab facility. She can follow-up with orthopedics in 4 weeks. Our office number is [phone] Present on Admission?: Yes Tanisha Salazar was seen and examined at bedside this morning. Overall she is doing a lot better. She was able to walk up and down the hallways with the nursing staff yesterday. Her ankle feels much better in the boot. She still having some knee pain. She has no other complaints. Physical Exam Musculoskeletal: On physical examination of the left ankle there is still some ecchymosis. She is wearing the boot as instructed. She is neurovascular intact. She has some ecchymosis on the anterior aspect of her knee. She is sitting with her knee flexed at 90 degrees. She is wearing a cock-up splint to her left wrist. She is neurovascular intact. Results & Data Vital Signs (Past 12 Hours) Vital Signs Temp Pulse Pulse Resp BP BP Pulse Ox 05/31/19 07:00 36.7 C 78 17 165/84 H 94 05/30/19 22:58 36.8 C 78 16 116/70 92 05/30/19 21:12 68 144/78 H PG Care Time/CCT Total # of Minutes Spent Total Time Spent with Patient: Total time spent is greater than 50% in coordination of care (as documented) at patient's floor/unit and/or counseling patient:
[2019-05-31] MEDS: INSULIN ASPART 100 UNITS/ML 3 ML PEN SC SCH ×4 (08:49→20:31)
[2019-05-31] MEDS: ACETAMINOPHEN 325 MG TAB PO PRN (20:29)
[2019-05-31] MEDS: ATORVASTATIN 40 MG TAB PO SCH (20:30)
[2019-05-31] MEDS: INSULIN GLARGINE SOLOSTAR 100 UNITS/ML 3 ML PEN SC SCH (20:31)
--- NOTE | 2019-05-31 23:03 | Hospitalist Progress Note ---
Date of Service May 31, 2019 Assessment & Plan (1) Closed left ankle fracture: Patient status post mechanical fall. Now unable to bear weight on the left ankle. Possible fracture per x-ray -Load x-ray image into our system -Orthopedic consultation appreciated -Now in boot. -Ok to weight bear as tolerated. -needs rehab. -Pain control -PT and OT evaluation -Patient will need 3 night stay at hospital for insurance purposes. (2) Atrial fibrillation with RVR: Chronic. Stable. Heart rate presently 84 bpm Continue Eliquis 5 mg p.o. twice daily -Continue carvedilol 25 mg p.o. twice daily -Continue diltiazem 120 mg p.o. every morning -Continue to monitor (3) DMII (diabetes mellitus, type 2): Chronic. Blood sugar presently 155. Last hemoglobin A1c = 7 on 10/25/2018 Lantus 25 units nightly Insulin sliding scale Continue to monitor (4) HTN (hypertension): Blood pressure stable at present. Continue home medications. Clonidine 0.1 mg p.o. twice daily, diltiazem, carvedilol -Continue to monitor (5) DVT (deep venous thrombosis): Remote history. Anticoagulation with apixaban 5 mg p.o. twice daily Subjective 68 yo female reports no new symptoms today. Review of Systems Review of Systems: All systems reviewed & are unremarkable except as noted in HPI & below Physical Exam Physical Exam: General: patient resting comfortably, NAD, non-toxic in appearance Skin: warm, dry, intact, no rashes or lesions HEENT: NC/AT, PERRL, EOMI, anicteric sclera, conjunctiva without injection, external ear normal to inspection and nontender, nares patent, moist mucus membranes, dentition intact, no oropharyngeal lesions, neck supple, trachea midline, no LAD, no thyromegaly, no JVD Heart: +S1/S2, regular, no m/r/g Lungs: equal air entry bilaterally, no rales/rhonchi/wheezes Abd: +BS, soft, NT/ND, no masses/organomegaly/ascites Ext: warm, 2+ pulses in UE/LE bilaterally, no clubbing/cyanosis or edema, left ankle dressed Neuro: nonfocal, patient AA&O x 4, speech intact, no facial droop, moving all extremities on command with equal strength 5/5 Results & Data Vital Signs (Past 12 Hours) Vital Signs Temp Pulse Pulse Resp BP BP Pulse Ox 05/31/19 23:02 36.7 C 82 16 139/77 90 05/31/19 14:54 36.8 C 80 16 129/75 91 PG Care Time/CCT Total # of Minutes Spent Total Time Spent with Patient: Total time spent is greater than 50% in coordination of care (as documented) at patient's floor/unit and/or counseling patient: (1) DMII (diabetes mellitus, type 2) Diabetes mellitus complication status: without complication Diabetes mellitus care home insulin use: with pump and still operator use Qualified Code(s): E11.9 - Type 2 diabetes mellitus without complications; Z79.4 - machinist brake (current) use of insulin (2) HTN (hypertension) Hypertension type: essential hypertension Qualified Code(s): I10 - Essential (primary) hypertension (3) Closed left ankle fracture Encounter type: initial encounter Qualified Code(s): S82.892A - Other fracture of left lower leg, initial encounter for closed fracture
[2019-06-01] MEDS: ACETAMINOPHEN 325 MG TAB PO PRN (04:49)
[2019-06-01] MEDS: LEVOTHYROXINE SODIUM 75 MCG TABLET PO SCH (06:32)
[2019-06-01 07:56] VITALS: TEMP 97.7; O2SAT 93
[2019-06-01] MEDS: CHOLECALCIFEROL 1,000 UNITS TAB PO SCH (08:50)
[2019-06-01] MEDS: ESCITALOPRAM OXALATE 10 MG TAB PO SCH (08:50)
[2019-06-01] MEDS: ALPRAZolam 0.5 MG TABLET PO SCH (08:50)
[2019-06-01] MEDS: LISINOPRIL 40 MG TAB PO SCH (08:51)
[2019-06-01] MEDS: POTASSIUM CHLORIDE 20 MEQ TABCR PO SCH (08:51)
[2019-06-01] MEDS: MAGNESIUM OXIDE 400 MG TAB PO SCH (08:51)
[2019-06-01] MEDS: cloNIDine HCl 0.1 MG TAB PO SCH (08:51)
[2019-06-01] MEDS: dilTIAZem HCL 120 MG CAPCR PO SCH (08:51)
[2019-06-01] MEDS: carvediloL 25 MG TAB PO SCH (08:51)
[2019-06-01] MEDS: ASPIRIN 81 MG ECTAB PO SCH (08:52)
[2019-06-01] MEDS: SENNA 8.6 MG TAB PO SCH (08:52)
[2019-06-01] MEDS: BUMETANIDE 1 MG TAB PO SCH (08:53)
[2019-06-01] MEDS: INSULIN ASPART 100 UNITS/ML 3 ML PEN SC SCH (08:54)
[2019-06-01] MEDS ORDERED: APIXABAN 2.5 MG TAB PO SCH (09:00)
[2019-06-01 11:40] VITALS: BP 139/77; PULSE 80
--- NOTE | 2019-06-04 22:39 | Discharge Summary ---
Date of Service June 01, 2019 Admission HPI Per Admitting Provider Marie Montero is a 68-year-old female with multiple medical problems presenting with possible left ankle fracture. She reports that last night she was sitting with a friend who has been ill. She was sleeping on his couch. When she tried to get up around 3 in the morning to check on him her legs felt weak and she was unable to stand up. She subsequently fell and injured her left ankle and left knee. She was unable to stand up and had to call her friend and to assist. Presently with continued pain in her left ankle and left knee, inability to bear weight. She was seen at [facility] emergency room earlier today where she had an x-ray obtained was suggested possible fracture. She was splinted and was going to be sent home, however, with her inability to bear weight she was transferred to [facility] for orthopedic evaluation. She is presently complaining of ankle pain Principal Diagnosis ankle fracture Discharge Exam General: patient resting comfortably, NAD, non-toxic in appearance Skin: warm, dry, intact, no rashes or lesions HEENT: NC/AT, PERRL, EOMI, anicteric sclera, conjunctiva without injection, external ear normal to inspection and nontender, nares patent, moist mucus membranes, dentition intact, no oropharyngeal lesions, neck supple, trachea midline, no LAD, no thyromegaly, no JVD Heart: +S1/S2, regular, no m/r/g Lungs: equal air entry bilaterally, no rales/rhonchi/wheezes Abd: +BS, soft, NT/ND, no masses/organomegaly/ascites Ext: warm, 2+ pulses in UE/LE bilaterally, no clubbing/cyanosis or edema, left ankle dressed Neuro: nonfocal, patient AA&O x 4, speech intact, no facial droop, moving all extremities on command with equal strength 5/5 Discharge Data Allergies Allergy/AdvReac Type Severity Reaction Status Date / Time Penicillins Allergy Intermediate HIVES Verified 10/24/18 09:54 dulaglutide [From Trulicity] Allergy Unknown CAN'T Verified 10/24/18 09:54 REMEMBER NSAIDS (Non-Steroidal AdvReac Mild DUE TO Verified 10/24/18 09:54 Anti-Inflamma KIDNEY DISEASE Consultations 05/27/19 12:15 Consult Orthopedic Surgery Routine 05/27/19 12:16 Consult Case Management - Discharge Planning Routine Hospital Course (1) Closed left ankle fracture: Patient status post mechanical fall. Now unable to bear weight on the left ankle. Possible fracture per x-ray -Load x-ray image into our system -Orthopedic consultation appreciated -Now in boot. -Ok to weight bear as tolerated. -needs rehab. -Pain control -PT and OT evaluation -patient will be discharged to rehab after 3 night stay (2) Atrial fibrillation with RVR: Chronic. Stable. Heart rate presently 84 bpm Continue Eliquis 5 mg p.o. twice daily -Continue carvedilol 25 mg p.o. twice daily -Continue diltiazem 120 mg p.o. every morning -Continue to monitor (3) DMII (diabetes mellitus, type 2): Chronic. Blood sugar presently 155. Last hemoglobin A1c = 7 on 10/25/2018 Lantus 25 units nightly Insulin sliding scale Continue to monitor (4) HTN (hypertension): Blood pressure stable at present. Continue home medications. Clonidine 0.1 mg p.o. twice daily, diltiazem, carvedilol -Continue to monitor (5) DVT (deep venous thrombosis): Remote history. Anticoagulation with apixaban 5 mg p.o. twice daily Total Time Total Time Spent Total Time Spent (In Minutes): 32 Total Time Includes: Examination of the Patient, Discharge Planning and Medication Reconciliation Discharge Plan Discharge Items Patient Disposition[facility] Reason For Visit: ANKLE FRACTURE Discharge Diagnosis: ankle fracture Activity: As commented below Activity Comment: cam walker weight bear as tolerated Non-emergency contact: Primary Care Provider Call non-emergency contact if: you have any medication questions Follow-up/Referrals: Pete Mason [Primary Care Provider] - Diet: Carb Consistent or DM2 and Heart Healthy Addtl Attending Provider Instructions: She can be weightbearing as tolerated in a cam walker boot. She does not need the boot on when she is lying in bed or sitting. But would need it on for transferring back to bed. The cock-up wrist splint on the left wrist is for comfort only. She is or thopedically stable for discharge. Ortho would like to see her back in the office in 4 weeks to make sure that she is improving. Pending Studies at Discharge: No Stand-Alone Forms: [facility] Skilled Items Patient informed of condition?: No DNR: No Discharge Level of Care: Skilled Communicable Disease: No Discharge Prognosis: Stable Lines: None Urinary Catheter: No Medications and DC Order Prescriptions: Continued atorvastatin 40 mg Tablet 40 mg PO HS 90 Days Qty: 90 RF: 3 carvedilol 25 mg Tablet 25 mg PO BID 30 Days Qty: 60 RF: 5 clonidine HCl 0.1 mg Tablet 0.1 mg PO BID 90 Days Qty: 180 RF: 3 alprazolam 1 mg Tablet 1 mg PO BID Qty: 0 RF: 0 bumetanide 0.5 mg Tablet 0.5 mg PO Q2D Qty: 0 RF: 0 lisinopril 40 mg Tablet 40 mg PO QAM Qty: 0 RF: 0 cholecalciferol (vitamin D3) [Vitamin D3] 2,000 unit Capsule 2,000 unit PO DAILY 30 Days Qty: 0 RF: 3 Tradjenta 5 mg Tablet 5 mg PO QAM 90 Days Qty: 90 RF: 3 magnesium oxide 400 mg Capsule 400 mg PO DAILY Qty: 0 RF: 0 Tresiba FlexTouch U-100 100 unit/mL (3 mL) Insulin Pen 25 unit SUBCUT QPM Qty: 0 RF: 0 potassium chloride 20 mEq Tablet Extended Release 20 meq PO Q2D Qty: 0 RF: 0 polyethylene glycol 3350 [Miralax] 17 gram/dose Powder 1 dose PO DAILY PRN (Reason: Constipation) Qty: 527 RF: 0 levothyroxine 88 mcg Tablet 75 mcg PO QAM RF: 0 Eliquis 5 mg Tablet 5 mg PO BID RF: 0 diltiazem HCl [Cardizem CD] 120 mg capsule,extended release 24hr 120 mg PO QAM RF: 0 aspirin [Aspir-Low] 81 mg Tablet,Delayed Release (Dr/Ec) 81 mg PO QAM RF: 0 escitalopram oxalate [Lexapro] 10 mg Tablet 20 mg PO QAM RF: 0 Ozempic 0.25 mg or 0.5 mg(2 mg/1.5 mL) Pen Injector 1 dose SUBCUT WK RF: 0 Discharge Orders: Discharge Order (Routine); Ordered 06/01/19 Ordered By: Pete Perez Admission Data Admit Date/Time: 05/29/19 16:50 Attending Provider: Pete Perez Admit Provider: Saborio,Pete A Primary Care Provider: Pete Mason Other Providers: Vincent Parisi Other Interventions: Discharge Summary Assessment (RN) Last Done: 06/01/19 11:39 DC Date/Time DO NOT enter until pt leaves facility: 06/01/19 12:39
== END 2019-06-01 12:39 | DRG 563 ==
LOC: INTOOBSV 11:12 → SUATTDRO 11:12 → 3W 11:12 → EDSTATUS 11:16 → 3W 05-29 16:50